=== PATIENT | female | born 1990 | race Caucasian/White ===

== ENCOUNTER 2017-07-23 10:55 | Emergency (ER) | payer MEDICAID ==
[~2017-07-23] VITALS: Ht 170.2 cm; Wt 96.7 kg
[2017-07-23 11:02] VITALS: BP 128/56; PULSE 66; RESP 16; TEMP 98.1; O2SAT 98
[2017-07-23] MEDS ORDERED: ERYTOIN10 EACH EYE (11:53)
--- NOTE | 2017-07-23 11:54 | PD ---
HPI Chief Complaint: Eye Problems/Injury Time Seen by Provider: 11:36 Travel History International Travel<30 days: No Contact w/Intl Traveler<30days: No Traveled to known affect area: No History of Present Illness HPI 27-year-old female here with bilateral eye injection and irritation 1 day. She is reporting yellow discharge and crusting of the lashes. No visual acuity changes. No ocular pain. Symptom severity is moderate. No aggravating or alleviating factors. Has not attempted any [id number] medications. Does not wear contact lenses. PFSH Past Medical History Medical History: Denies Significant Hx Diminished Hearing: No Immunizations Current: Yes Tetanus Vaccination: Unknown Influenza Vaccination: No ?: Not LMP: 06/30/17 : 1 Para: 1 Past Surgical History Section: Yes Cholecystectomy: Yes Social History Alcohol Use: Yes (RARELY) Tobacco Use: Yes (5 cigs a day) Substance Use: No Allergies-Medications (Allergen,Severity, Reaction): Coded Allergies: codeine (Unverified Allergy, Severe, Chest Pain, 07/23/17) Reported Meds & Prescriptions Reported Meds & Active Scripts Active No Active Prescriptions or Reported Medications Review of Systems Except as stated in HPI: all other systems reviewed are Neg General / Constitutional: No: Fever Eyes: Positive: Drainage, Redness, Tearing, No: Visual changes HENT: No: Headaches Cardiovascular: No: Chest Pain or Discomfort Respiratory: No: Shortness of Breath Gastrointestinal: No: Abdominal Pain Genitourinary: No: Dysuria Physical Exam Narrative GENERAL: Alert and well-appearing 26-year-old female. SKIN: Warm and dry. HEAD: Normocephalic. EYES: Bilateral eyes are mildly injected. Crusting noted at lashes. Pupils equal, round, reactive to light. EOMs intact. Visual loya intact. Corneas are clear. Normal visual acuity. NECK: Supple, trachea midline. No lymphadenopathy. CARDIOVASCULAR: Regular rate and rhythm RESPIRATORY: Breath sounds equal bilaterally. No accessory muscle use. GASTROINTESTINAL: Abdomen soft, non-tender, nondistended. MUSCULOSKELETAL: No cyanosis, or edema. Data Data Last Documented VS Vital Signs Date Time Temp Pulse Resp B/P (MAP) Pulse Ox O2 Delivery O2 Flow Rate FiO2 07/23/17 11:02 98.1 66 16 128/56 (80) 98 MDM Medical Decision Making Medical Screen Exam Complete: Yes Emergency Medical Condition: Yes Differential Diagnosis Bacterial conjunctivitis, viral conjunctivitis, allergic conjunctivitis Narrative Course 27-year-old female here with conjunctivitis. She be treated with erythromycin ointment. Diagnosis Primary Impression: Conjunctivitis Qualified Codes: H10.33 - Unspecified acute conjunctivitis, bilateral Referrals: [facility] Primary Care Physician Additional Instructions: Antibiotic ointment as directed. Discontinue use of eye makeup until symptoms resolved Scripts Erythromycin Opth Oint (Erythromycin Opth Oint) 5 Mg/Gm Oint 1 APPLIC EACH EYE QID for Infection, #1 TUBE 0 Refills Prov: Meredith Amador 07/23/17 Disposition: 01 DISCHARGE HOME Condition: Stable Meredith Amador Jul 23, 2017 11:54
== END 2017-07-23 12:07 | disposition home or self-care (01) ==
LOC: PHEFT 10:55
DX: H10.9 Unspecified conjunctivitis (principal); F17.210 Nicotine dependence, cigarettes, uncomplicated; Z88.5 Allergy status to narcotic agent
CPT/HCPCS: 99283